=== PATIENT | female | born 1940 | race Caucasian/White ===

== ENCOUNTER 2018-03-17 10:31 | Outpatient (CLI) | payer MEDICARE ==
--- NOTE | 2018-03-17 13:26 | MRI ---
MRI LUMBAR SPINE WITHOUT CONTRAST: Date: 03/17/18 HISTORY: Disc degenerative change at L5-S1. Localized low back pain. COMPARISON: None. TECHNIQUE: Lumbar spine MRI is performed without intravenous Gadolinium administration. Multisequential, multipl heaven imaging is performed. FINDINGS: There is 1.7 mm anterolisthesis of L3 upon L4 and 3.3 mm anterolisthesis of L4 upon L5. No significan t STIR hyperintensity to suggest vertebral body edema or ligamentous injury. There is a small amount of fluid in bilateral facet joints at L3-L4 and L4-L5. Appropriate T1 marrow signal intensity of lumb ar vertebra. Vertebral body height is maintained. There is no fracture. Symmetric signal intensity of the psoas muscles. Visualized solid organs are unremarkable. Conus medullaris terminates at the mid L1 level. T12-L1: Adequate disc hydration. No significant central canal stenosis or foraminal narrowing. L1-L2: Minimal disc desiccation. No significant loss of disc space height. No significant posterior disc abn ormality. No significant central canal stenosis. Moderate bilateral foraminal narrowing. L2-L3: Adequate disc hydration. No significant posterior disc abnormality. No significant central canal sten osis. Mid right and minimal left foraminal narrowing. L3-L4: Adequate disc hydration. There is generalized disc bulge, ligamentum flavum thickening, and facet hyp ertrophy that results in minimal central canal stenosis. Right neural foramen is patent. Minimal left foraminal narrowing. L4-L5: Adequate disc hydration. Generalized disc bulge, ligamentum flavum thickening, and facet hypertrophy result in minimal central canal stenosis. Neural foramina are patent bilaterally. L5-S1: Adequate disc hydration. No significant central canal stenosis. Patent bilateral neural foramina. Questionable mucosal thickening involving the cecum and ascending colon. Better interrogation with co lonoscopy is recommended. IMPRESSION: 1. No significant central canal stenosis or foraminal narrowing. 2. Degenerative changes of the posterior elements at L3-L4 and L4-L5. Grade I anterolisthesis of L4 upon L5. 3. Mucosal irregularity involving the right hemicolon is suspected, evaluation is incomplete. Colono scopy is recommended. CODE T. POS: [facility]
== END 2018-03-17 10:32 | disposition home or self-care (01) ==
LOC: TBSIIMAG 10:31
PROVIDERS: ATTEND Neurological Surgery
DX: M51.36 Other intervertebral disc degeneration, lumbar region (principal); M47.896 Other spondylosis, lumbar region; M43.16 Spondylolisthesis, lumbar region
CPT/HCPCS: 72148

== ENCOUNTER → 2018-10-12 | Day surgery (SDC) | payer MEDICARE ==
[2018-10-08 08:20] VITALS: BMI 13.8
[~2018-10-12] MED LIST: Bacitracin Zinc 1 Packet ONE; Bacitracin Zinc Ointment 30 gm TUBE ONE; Fentanyl 100 MCG/2 ML VIAL ONE; Sodium Chloride 0.9% 0 ML ONE; Vancomycin HCl 1 GM in Premix Bag 1 BAG IVPB SCH; Vancomycin HCl 500 MG in Sodium Chloride 0.9% 100 ML IVPB SCH
[2018-10-12 11:46] LABS: #Basophils 0.1 thou/uL (0.0-0.2); #Eosinphils 0.2 thou/uL (0.0-0.7); #Lymphocytes 2.3 thou/uL (1.20-3.40); #Monocytes 0.7 thou/uL (0.11-0.59); #Neutrophils 7.9 thou/uL (1.40-6.50); %Basophils 0.7 % (0.0-1.0); %Eosinophils 1.7 % (0.0-10.0); %Lymphocytes 20.4 % (21.0-51.0); %Monocytes 6.6 % (0.0-10.0); %Neutrophils 70.7 % (42.0-75.0); Hemoglobin 10.1 g/dL (12.0-16.0); Mean Corpuscular HGB CONC 31.1 g/dL (32.0-36.0); Mean Corpuscular Hemoglobin 25.3 pg (27.0-31.0); Mean Corpuscular Volume 81.2 fL (78.0-98.0); Mean Platelet Volume 8.7 fL (7.4-10.4); Platelet Count 353 thou/uL (130-400); RBC Distribution Width 17.7 % (11.5-14.5); Red Blood Cell (RBC) Count 3.98 mill/uL (4.20-5.40); White Blood Cell (WBC) Count 11.2 thou/uL (4.8-10.8)
[2018-10-12 11:56] LABS: Bilirubin Negative (Negative); Blood, Urine Negative (Negative); Clarity CLEAR (Clear); Glucose, Urine (Dipstick) Negative (Negative); Leukocyte Negative (Negative); Nitrite Negative (Negative); Protein, Urine (Dipstick) Negative (Neg-Trace); Specific Gravity, Urine 1.019 (1.002-1.036); pH, Urine 5.5 (5.0-9.0)
--- NOTE | 2018-10-12 11:58 | RAD ---
PA AND LATERAL VIEWS CHEST: HISTORY: Preoperative evaluation. FINDINGS: Comparison is made with the exam of 11/08/2016. The heart size is normal. The aorta is tortuous. The lungs are expanded without lobar consolidation , pneumothoraces, or pleural effusions. Mild chronic changes are again seen. There is scoliosis of the spine with degenerative changes. There are postop changes in the left shoulder. IMPRESSION: No acute process. POS: [facility]
[2018-10-12 12:02] LABS: Bacteria/HPF None Seen HPF (None Seen); Hyaline Casts/LPF 0-3 HYALINE CAST LPF (0-3 Hyaline); Pathc Cast-AUWi Flag 0.27 (0-2.49); RBC/HPF 0-3 HPF (0-3); WBC/HPF 0-3 HPF (0-3)
[2018-10-12 12:12] LABS: Anion Gap 14 mmol/L (10-20); BUN (Urea Nitrogen) 29 mg/dL (9.8-20.1); Calc. Creatinine Clearance 34 mL/min (70-130); Calcium 9.7 mg/dL (7.8-10.44); Carbon Dioxide 24 mmol/L (23-31); Estimated GFR-MDRD 75; Glucose 86 mg/dL (83-110); Potassium 4.9 mmol/L (3.5-5.1)
[2018-10-12 12:28] LABS: Chloride 104 mmol/L (98-107); Sodium 137 mmol/L (136-145)
--- NOTE | 2018-10-12 15:53 | CT ---
CT Sinuses WO Con INDICATION: Pain, leukocytosis COMPARISON: None FINDINGS: Maxillary sinuses: Mucosal thickening Frontal sinus: Mucosal thickening Sphenoid sinus: Clear Ethmoid sinus: Mucosal thickening Mastoid air cells: Clear Nasal Septum: Leftward deviation, with associated spur Incidental findings: None of significance. IMPRESSION: Scattered mild mucosal thickening of the paranasal sinuses, without acute fluid level.
--- NOTE | 2018-10-13 22:58 | EKG ---
Test Reason : PREOP Blood Pressure : / mmHG Vent. Rate : 073 BPM Atrial Rate : 073 BPM P-R Int : 154 ms QRS Dur : 084 ms QT Int : 406 ms P-R-T Axes : 080 036 079 degrees QTc Int : 447 ms Normal sinus rhythm Low voltage QRS Borderline ECG When compared with ECG of 06-DEC-2004 06:27, No significant change was found Confirmed by BENITO HAWK ([id number]) on 10/13/2018 10:58:00 PM Referred By: BETHANY Confirmed By:BENITO HAWK
[2018-10-14 15:29] LABS: ANA Symphony (Qualitative) Negative (Negative); ANA Symphony (Quantitative) 0.1 Ratio (< 0.7 Negative); dsDNA IgG Antibody 0.6 IU/mL (<10 Negative)
[2018-10-14 16:23] LABS: CCP IgG Antibody 0.8 EliAU/mL (<7 Negative); EliA RAS New Method **** NEW METHOD ****
== END ==
LOC: SDC 10:58
PROVIDERS: ATTEND Orthopaedic Surgery Hand Surgery
DX: S63.211A Subluxation of metacarpophalangeal joint of left index finger, initial encounter (principal); S63.213A Subluxation of metacarpophalangeal joint of left middle finger, initial encounter; S63.215A Subluxation of metacarpophalangeal joint of left ring finger, initial encounter; S63.217A Subluxation of metacarpophalangeal joint of left little finger, initial encounter; M66.242 Spontaneous rupture of extensor tendons, left hand; M19.90 Unspecified osteoarthritis, unspecified site; J45.909 Unspecified asthma, uncomplicated; F17.210 Nicotine dependence, cigarettes, uncomplicated; Z86.12 Personal history of poliomyelitis; Z53.8 Procedure and treatment not carried out for other reasons; Z88.0 Allergy status to penicillin; Z88.5 Allergy status to narcotic agent; Z91.040 Latex allergy status; Z79.51 Long term (current) use of inhaled steroids; Z79.899 Other long term (current) drug therapy
CPT/HCPCS: 36415; 71046; 80048; 81001; 83520; 85025; 85652; 86038; 86200; 86225; 93005; 93010; J3010; J3370; J3490

== ENCOUNTER 2018-11-27 12:36 | Inpatient (IN) | payer MEDICARE ==
[2018-11-27] MEDS ORDERED: traMADol HCl 50 MG TAB ONE (13:17)
--- NOTE | 2018-11-27 13:46 | RAD ---
XR Knee Rt 2 View History: [Injury.] Comparison: None. Findings: There is a transversely oriented distal femoral fracture distal femoral metaphysis without definite intra-articular extension. There is posterior displacement distal fragment one half shaft width as well as posterior angulation. Moderate chondrocalcinosis. Impression: Mildly comminuted distal femoral fracture as described.
[2018-11-27 14:39] LABS: #Basophils 0.1 thou/uL (0.0-0.2); #Lymphocytes 1.7 thou/uL (1.20-3.40); #Neutrophils 15.8 thou/uL (1.40-6.50); %Basophils 0.5 % (0.0-1.0); %Eosinophils 0.3 % (0.0-10.0); %Lymphocytes 8.9 % (21.0-51.0); %Monocytes 5.2 % (0.0-10.0); %Neutrophils 85.1 % (42.0-75.0); Hemoglobin 9.7 g/dL (12.0-16.0); Mean Corpuscular HGB CONC 31.5 g/dL (32.0-36.0); Mean Corpuscular Hemoglobin 25.3 pg (27.0-31.0); Mean Corpuscular Volume 80.4 fL (78.0-98.0); Mean Platelet Volume 9.4 fL (7.4-10.4); Platelet Count 357 thou/uL (130-400); RBC Distribution Width 15.8 % (11.5-14.5); Red Blood Cell (RBC) Count 3.84 mill/uL (4.20-5.40); White Blood Cell (WBC) Count 18.5 thou/uL (4.8-10.8)
[2018-11-27 14:46] LABS: INR-International Normal Ratio 0.9; PTT 25.2 SEC (22.9-36.1); Prothrombin Time 12.6 SEC (12.0-14.7)
[2018-11-27 15:01] LABS: ALT (SGPT) 10 U/L (8-55); AST (SGOT) 17 U/L (5-34); Albumin 4.1 g/dL (3.4-4.8); Alkaline Phosphatase 84 U/L (40-150); Anion Gap 15 mmol/L (10-20); BUN (Urea Nitrogen) 34 mg/dL (9.8-20.1); Bilirubin, Total 0.4 mg/dL (0.2-1.2); Calc. Creatinine Clearance 0 mL/min (70-130); Calcium 9.8 mg/dL (7.8-10.44); Carbon Dioxide 22 mmol/L (23-31); Chloride 104 mmol/L (98-107); Estimated GFR-MDRD 59; Globulin 3.1 g/dL (2.4-3.5); Glucose 110 mg/dL (83-110); Potassium 4.9 mmol/L (3.5-5.1); Protein, Total 7.2 g/dL (6.0-8.3); Sodium 136 mmol/L (136-145)
[2018-11-27] MEDS ORDERED: Clindamycin/D5W 900 MG in Premix Bag 1 BAG IVPB SCH (15:30)
--- NOTE | 2018-11-27 15:41 | HP ---
CONSULTATIONS: Orthopedics, Dr. Levy. HISTORY OF PRESENT ILLNESS: The patient is a 77-year-old woman, who was reportedly at home this morning when she got up out of bed and she is unsure she heard a crack as soon as she stood up or immediately after falling, but she knows that her knee had sudden pain on her right side. She fell, landed on the right side, was able to call her son, who brought her to the emergency department, where she underwent evaluation and examination and was noted to have the right distal femur fracture, at which time, we were asked to admit the patient and obtain Orthopedic consultations. The patient denied loss of consciousness or any syncopal type events surrounding her fall. ALLERGIES: PENICILLIN. THE PATIENT STATES SHE HAS HAD A REACTION THAT TURNED HER LIPS BLACK. SHE ALSO LISTS CODEINE CAUSING SEVERE NAUSEA. CURRENT MEDICATIONS: Lisinopril 10 mg daily, Singulair, and Zyrtec. PAST MEDICAL HISTORY: Coronary artery disease, asthma. PAST SURGICAL HISTORY: Hysterectomy, left shoulder and left elbow surgeries, gastrorrhaphy for bleeding ulcer. SOCIAL HISTORY: The patient smokes approximately half pack of cigarettes per day. Denies drug or alcohol use. Currently lives independently at home. REVIEW OF SYSTEMS: A 10-point review of systems is negative as otherwise stated. PHYSICAL EXAMINATION: VITAL SIGNS: Blood pressure 112/82, heart rate 85, respirations 18, oxygen saturation 97% on room air, and temperature is 98.2. GENERAL: The patient is resting comfortably in the ER bed. She is awake, alert, and oriented x3. Gooding Coma Scale is 15. HEENT: Head is normocephalic and atraumatic. Eyes, extraocular motion intact. PERRLA bilaterally. Ears are atraumatic without discharge. Nose atraumatic without discharge. Oropharynx is clear. NECK: Nontender. Trachea is midline. There is no JVD. LUNGS: Clear to auscultation with good inspiratory and expiratory effort. HEART: Regular rate and rhythm. ABDOMEN: Soft, flat, and nontender with active bowel sounds. PELVIS: Stable. EXTREMITIES: Neurovascularly intact x4. The patient has moderate deformity to right knee, which she currently lacks it about 45-degree angle, which she states is comfortable. Again, she is neurovascularly intact distally. LABORATORY FINDINGS: White blood cell count 18.5, hemoglobin 9.7, hematocrit 30.9, and platelets 357. Sodium 136, potassium 4.9, chloride 104, CO2 22, BUN 34, creatinine 0.92, glucose 110. LFTs are unremarkable. PT 13, INR 0.9, PTT 25. Radiographs of the right knee show a mildly comminuted distal femur fracture with angulation. ASSESSMENT AND PLAN: 1. Status post mechanical fall. 2. Right distal femur fracture. 3. Acute pain secondary to above. PLAN: Plan will be to admit the patient to the surgical floor after discussion with Orthopedics. Their plan will be to take the patient to the operating room tomorrow, so we will make her n.p.o. after midnight. Postoperatively, we will continue pain control, pulmonary toilet, gastritis, mechanical VTE prophylaxis. Begin physical and occupational therapy. The patient will likely need placement postoperatively to continue her rehabilitation. The evaluation, examination, laboratory, and radiographic findings will be discussed with Dr. White after this dictation. Job ID: [id number]
--- NOTE | 2018-11-27 15:43 | RAD ---
XR Chest 1 View Portable History: [Preop femur fracture] Comparison: Radiograph 2017 Findings: Abnormal levoscoliosis of the thoracic spine. Lungs are hyperinflated. No acute airspace co nsolidation pneumothorax or effusion. Cardiac silhouette and mediastinal contours appear within normal limits. Impression: No acute intrathoracic abnormality.
--- NOTE | 2018-11-27 15:50 | CON ---
DATE OF CONSULTATION: This is Francisco Mendes PA-C dictating a report for Jay Levy MD. HISTORY OF PRESENT ILLNESS: We were asked by ER and Trauma to see patient. The patient got out of bed at 6:20 this morning, fell. Since that time, she has been having right knee pain. She came into the emergency room, found to have a distal femur fracture. The patient has some pain with movement. She seems pretty tough. She was not able to walk on the leg. She has no numbness or tingling down the right lower extremity, although she has a significant amount of bruising to the lower extremities. She states she has very sensitive skin. She has also seen Dr. Faulkner in our group for orthopedic issues and Dr. Joya in our group for hand issues. Currently, she is resting on a gurney in room D in the emergency room, in no acute distress. She did not hit her head falling. PAST MEDICAL HISTORY: Positive for ruptured appendix. She has smoking history , but other than taking some Singulair and inhalers, her lungs appeared to work okay. She denies any shortness of breath. SURGICAL HISTORY: She has had a knee scope bilaterally, hysterectomy, appendectomy, carotids. She has also had some repairs of left shoulder and elbow fractures. FAMILY HISTORY: For this visit, is noncontributory. SOCIAL HISTORY: Smoker, about a half pack a day. No alcohol or drugs though. is at bedside. She is retired. MEDICATIONS: 1. Lisinopril. 2. Vitamin D. 3. Singulair. 4. Occasional Ultram. 5. Symbicort. ALLERGIES: 1. PENICILLIN. 2. CODEINE. 3. IODINE. 4. LATEX. REVIEW OF SYSTEMS: Denies any shortness of breath or chest pain. Just right knee pain. She does have extensive bruising to the forearms, hands, knees, and lower extremities, but denies much pain as long as we do not move her. Rest of review of systems is negative. PHYSICAL EXAMINATION: GENERAL: Well-nourished, well-developed female, resting on a gurney in room D in the ER. Speech clear, fluent, oriented x3. HEENT: Normal exam. Face is symmetric. Tongue midline. NECK: Supple. Trachea midline. UPPER EXTREMITIES: Equal size, shape, symmetry. Normal bulk and tone with again, bruising seen to both arms. She does have a hand deformity on the left hand, which she is awaiting for Dr. Joya to repair. She does move both of her hands fairly well, but does have some limitations on that left hand. RESPIRATORY: Respirations 16. No distress. PELVIS: Rocked, no pain. LOWER EXTREMITIES: The patient has her right lower extremity elevated and bent , and this feels comfortable for her. It is quite swollen and has significant amount of ecchymosis and edema, as does the lower extremities have a lot of ecchymosis, various healing bruises. Skin is also quite thin and DP pulses are equal. ASSESSMENT: Right distal femur fracture. PLAN: Will let Pt eat today. Plan on doing her tomorrow morning. I have called the ER and got her posted for 8:45. We did discuss the surgery, the risks and benefits of surgery. We did go over the risks of her being a smoker and the problems that this will cause. She is amenable to go forth with surgery and understands risks and benefits as they have been explained as is her . She has been told in the past that she should not go under anesthesia. We will discuss this with Anesthesia tomorrow and may be possible, we would be able to do a spinal or an epidural of some kind, as she is not on any blood thinners. Her questions and concerns have been addressed and answered, and again, she is amenable to go forth with surgery. Job ID: [id number] MTDD
[2018-11-27] MEDS ORDERED: Dextrose 5% in Water 1,000 ML IV PRN (17:15)
[2018-11-27] MEDS ORDERED: Morphine 2 MG/ML SYRINGE SLOW IVP PRN (17:15)
[2018-11-27] MEDS ORDERED: Ondansetron PF 4 MG/2 ML Vial IVP PRN (17:15)
[2018-11-27] MEDS ORDERED: Dextrose 50% Abboject 50 ML SYRINGE SLOW IVP PRN (17:15)
[2018-11-27] MEDS ORDERED: Ketorolac Tromethamine 30 MG/ML VIAL IVP SCH (17:15)
[2018-11-27] MEDS ORDERED: Ondansetron ODT 4 MG TAB PO PRN (17:15)
[2018-11-27] MEDS ORDERED: hydrALAZINE 20 MG/ML VIAL SLOW IVP PRN (17:15)
[2018-11-27] MEDS ORDERED: Acetaminophen 1,000 MG in Premix Bag 1 BAG IVPB SCH (17:15)
[2018-11-27] MEDS: Sodium Chloride 0.9% 1,000 ML IV SCH (17:47)
[2018-11-27] MEDS: traMADol HCl 50 MG TAB PO PRN ×2 (17:48→23:45)
[2018-11-27 18:53] VITALS: BMI 15.0
[2018-11-27] MEDS: Famotidine 20 MG TAB PO SCH (21:22)
[2018-11-27] MEDS: Cyclobenzaprine 10 MG TAB PO PRN (21:22)
[2018-11-27] MEDS: Nicotine 14 MG PATCH TD SCH (21:22)
[2018-11-27] MEDS: Acetaminophen 325 MG TAB PO SCH (23:44)
[2018-11-27] MEDS ORDERED: Acetaminophen 500 MG TAB PO SCH (23:59)
[2018-11-28] MEDS ORDERED: Ibuprofen 800 MG TAB PO PRN (02:00)
[2018-11-28 03:37] LABS: Bilirubin Negative (Negative); Blood, Urine Negative (Negative); Clarity CLEAR (Clear); Glucose, Urine (Dipstick) Negative (Negative); Leukocyte Negative (Negative); Nitrite Negative (Negative); Protein, Urine (Dipstick) Negative (Neg-Trace); Specific Gravity, Urine 1.023 (1.002-1.036); Urobilinogen 0.2 mg/dL (0.2-1.0)
[2018-11-28 03:38] LABS: Urine Culture Reflex No No
[2018-11-28 03:39] LABS: Bacteria/HPF None Seen HPF (None Seen); Hyaline Casts/LPF 7-10 HYALINE CAST LPF (0-3 Hyaline); Pathc Cast-AUWi Flag 1.63 (0-2.49); RBC/HPF 0-3 HPF (0-3); Squamous Epithelial 0-3 HPF (0-3); WBC/HPF 0-3 HPF (0-3)
[2018-11-28 05:38] LABS: #Basophils 0.1 thou/uL (0.0-0.2); #Eosinphils 0.3 thou/uL (0.0-0.7); #Lymphocytes 2.9 thou/uL (1.20-3.40); #Monocytes 1.3 thou/uL (0.11-0.59); #Neutrophils 10.8 thou/uL (1.40-6.50); %Basophils 0.4 % (0.0-1.0); %Eosinophils 1.7 % (0.0-10.0); %Monocytes 8.7 % (0.0-10.0); %Neutrophils 70.3 % (42.0-75.0); Hemoglobin 8.2 g/dL (12.0-16.0); Mean Corpuscular HGB CONC 31.3 g/dL (32.0-36.0); Mean Corpuscular Hemoglobin 26.1 pg (27.0-31.0); Mean Corpuscular Volume 83.3 fL (78.0-98.0); Mean Platelet Volume 9.6 fL (7.4-10.4); Platelet Count 274 thou/uL (130-400); RBC Distribution Width 15.8 % (11.5-14.5); Red Blood Cell (RBC) Count 3.15 mill/uL (4.20-5.40); White Blood Cell (WBC) Count 15.4 thou/uL (4.8-10.8)
[2018-11-28 05:46] LABS: Phosphorus 3.1 mg/dL (2.3-4.7)
[2018-11-28 05:51] LABS: Anion Gap 10 mmol/L (10-20); BUN (Urea Nitrogen) 31 mg/dL (9.8-20.1); Calc. Creatinine Clearance 35 mL/min (70-130); Calcium 8.5 mg/dL (7.8-10.44); Carbon Dioxide 20 mmol/L (23-31); Chloride 110 mmol/L (98-107); Estimated GFR-MDRD 73; Glucose 123 mg/dL (83-110); Magnesium 1.6 mg/dL (1.6-2.6); Potassium 4.4 mmol/L (3.5-5.1); Sodium 136 mmol/L (136-145)
[2018-11-28] MEDS: traMADol HCl 50 MG TAB PO PRN ×2 (06:10→14:52)
[2018-11-28] MEDS: Sodium Chloride 0.9% 1,000 ML IV SCH ×2 (06:10→19:07)
[2018-11-28] MEDS: Acetaminophen 325 MG TAB PO SCH ×4 (06:10→23:27)
[2018-11-28] MEDS: Famotidine 20 MG TAB PO SCH ×2 (08:30→21:57)
[2018-11-28] MEDS ORDERED: Clindamycin/D5W 900 mg/50 ml Premix Bag ONE (08:43)
[2018-11-28] MEDS ORDERED: Lidocaine 2% Jelly 5 ML TUBE ONE (09:42)
[2018-11-28] MEDS ORDERED: Fentanyl 100 MCG/2 ML VIAL ONE (09:42)
[2018-11-28] MEDS ORDERED: Phenylephrine HCL 10 MG/ML VIAL ONE (10:24)
[2018-11-28] MEDS ORDERED: PROPOFOL 200 MG/20 ML VIAL ONE (10:24)
[2018-11-28] MEDS ORDERED: Morphine 2 MG/ML SYRINGE ONE (10:30)
[2018-11-28] MEDS ORDERED: Ondansetron HCl/PF 4 MG/2 ML Vial IVP PRN (11:52)
[2018-11-28] MEDS ORDERED: Promethazine HCl 25 MG/ML VIAL IM PRN (11:52)
[2018-11-28] MEDS ORDERED: Promethazine HCl 25 MG/ML VIAL SLOW IVP PRN (11:52)
[2018-11-28] MEDS ORDERED: Magnesium 2 GM/50 ML 2 GM in Premix Bag 1 BAG IVPB SCH (13:15)
[2018-11-28] MEDS: Lisinopril 5 MG TAB PO SCH (13:48)
[2018-11-28] MEDS ORDERED: Sodium Chloride 0.9% 500 ML IV SCH ×2 (15:15→16:15)
[2018-11-28] MEDS ORDERED: Clindamycin/D5W 900 MG in Premix Bag 1 BAG IVPB SCH (17:00)
[2018-11-28] MEDS: Cyclobenzaprine 10 MG TAB PO PRN (17:00)
[2018-11-28] MEDS: Mometasone/Formoterol 120 PUFF INHALER INH SCH (20:44)
[2018-11-28] MEDS: Nicotine 14 MG PATCH TD SCH (21:57)
[2018-11-28] MEDS: Simvastatin 20 MG TAB PO SCH (21:57)
[2018-11-28] MEDS: Aspirin 81 mg Enteric Coated Tablet PO SCH (21:57)
[2018-11-28] MEDS: Clindamycin/D5W 900 MG in Premix Bag 1 BAG IVPB SCH (22:02)
[2018-11-29] MEDS: Acetaminophen 325 MG TAB PO SCH ×3 (06:50→18:03)
[2018-11-29] MEDS: Sodium Chloride 0.9% 1,000 ML IV SCH (06:51)
[2018-11-29] MEDS: Mometasone/Formoterol 120 PUFF INHALER INH SCH ×2 (08:34→19:16)
[2018-11-29] MEDS: Aspirin 81 mg Enteric Coated Tablet PO SCH ×2 (09:28→21:10)
[2018-11-29 10:26] LABS: Band 8 % (5-11); Hemoglobin 7.3 g/dL (12.0-16.0); Hypochromia SLIGHT = 6-15 cells (100X) (0-5/hpf); Lymphocytes 13 % (21-51); MDiff Complete? YES; Mean Corpuscular HGB CONC 30.7 g/dL (32.0-36.0); Mean Corpuscular Hemoglobin 25.1 pg (27.0-31.0); Mean Corpuscular Volume 81.7 fL (78.0-98.0); Mean Platelet Volume 9.6 fL (7.4-10.4); Monocytes 2 % (0-10); Neutrophil 77 % (42-75); Platelet Count 288 thou/uL (130-400); RBC Distribution Width 15.9 % (11.5-14.5); Red Blood Cell (RBC) Count 2.91 mill/uL (4.20-5.40); Target Cells SLIGHT = 2-5 cells (100X) (0-1/hpf); White Blood Cell (WBC) Count 20.2 thou/uL (4.8-10.8)
[2018-11-29] MEDS: Clindamycin/D5W 900 MG in Premix Bag 1 BAG IVPB SCH (12:50)
[2018-11-29] MEDS: traMADol HCl 50 MG TAB PO PRN (12:58)
[2018-11-29] MEDS ORDERED: Magnesium Sulfate 3 GM in Sodium Chloride 0.9% 250 ML 250 ML IVPB SCH (15:00)
--- NOTE | 2018-11-29 15:12 | PRG ---
DATE OF SERVICE: 11/29/2018 SUBJECTIVE: The patient is hospital day 2, postop day 1 status post ground level fall, which she sustained a right distal femur fracture. She has undergone operation of open reduction and internal fixation of same. She tolerated the procedure well. She underwent spinal for that, so yesterday she was unable to work with Physical Therapy, so she is waiting for that now. She had no issues overnight. Pain is controlled. She is tolerating a diet. OBJECTIVE: VITAL SIGNS: Temperature is 97.7, heart rate 80, blood pressure 130/74 respirations 15, oxygen saturation is 100% on room air. GENERAL: The patient is resting comfortably in bed. She was asleep, when I went there, was easily awakened with verbal stimuli. HEENT: Unremarkable. LUNGS: Clear to auscultation with good inspiratory and expiratory efforts. HEART: Regular rate and rhythm. ABDOMEN: Soft, flat, nontender with active bowel sounds. EXTREMITIES: Neurovascularly intact x4. Postop dressing is clean, dry, and intact. LABORATORY FINDINGS: White blood cell count 20.2, hemoglobin 7.3, hematocrit 23.8, platelets 288. Sodium 136, potassium 4.4, chloride 110, CO2 of 20, BUN 31, creatinine 0.77, glucose 123, phosphorus 3.1, magnesium 1.6. IMAGING STUDIES: There are no radiographs reviewed this morning. ASSESSMENT: 1. Status post ground level fall. 2. Status post open reduction and internal fixation of a right distal femur fracture. 3. Hypomagnesemia. PLAN: Plan will be to continue supportive care, physical and occupational therapy, pain control, pulmonary toilet, mechanical and chemical VTE prophylaxis, and replace her magnesium this morning. We will repeat her labs in the morning. We will also discuss placement tomorrow. Job ID: [id number]
[2018-11-29] MEDS: HYDROcodone/Acetaminophen 5/325 mg Tablet PO PRN (18:00)
[2018-11-29] MEDS: Nicotine 14 MG PATCH TD SCH (20:59)
[2018-11-29] MEDS: Simvastatin 20 MG TAB PO SCH (21:00)
[2018-11-29] MEDS: Senokot S 8.6-50 MG TAB PO SCH (21:00)
[2018-11-29] MEDS: Famotidine 20 MG TAB PO SCH (21:00)
[2018-11-30] MEDS: Acetaminophen 325 MG TAB PO SCH ×4 (00:41→17:44)
[2018-11-30] MEDS: HYDROcodone/Acetaminophen 5/325 mg Tablet PO PRN ×2 (01:11→05:38)
[2018-11-30] MEDS: traMADol HCl 50 MG TAB PO PRN ×2 (03:27→17:45)
[2018-11-30 05:19] LABS: #Basophils 0.1 thou/uL (0.0-0.2); #Eosinphils 0.3 thou/uL (0.0-0.7); #Monocytes 1.4 thou/uL (0.11-0.59); #Neutrophils 9.9 thou/uL (1.40-6.50); %Basophils 0.4 % (0.0-1.0); %Eosinophils 2.1 % (0.0-10.0); %Lymphocytes 14.6 % (21.0-51.0); %Monocytes 9.9 % (0.0-10.0); %Neutrophils 72.9 % (42.0-75.0); Hemoglobin 6.3 g/dL (12.0-16.0); Mean Corpuscular HGB CONC 30.9 g/dL (32.0-36.0); Mean Corpuscular Hemoglobin 25.2 pg (27.0-31.0); Mean Corpuscular Volume 81.4 fL (78.0-98.0); Mean Platelet Volume 10.2 fL (7.4-10.4); Platelet Count 275 thou/uL (130-400); RBC Distribution Width 15.8 % (11.5-14.5); Red Blood Cell (RBC) Count 2.52 mill/uL (4.20-5.40); White Blood Cell (WBC) Count 13.6 thou/uL (4.8-10.8)
[2018-11-30 05:49] LABS: Anion Gap 9 mmol/L (10-20); BUN (Urea Nitrogen) 29 mg/dL (9.8-20.1); Calc. Creatinine Clearance 40 mL/min (70-130); Calcium 8.6 mg/dL (7.8-10.44); Carbon Dioxide 22 mmol/L (23-31); Chloride 107 mmol/L (98-107); Estimated GFR-MDRD 82; Glucose 118 mg/dL (83-110); Magnesium 2.7 mg/dL (1.6-2.6); Phosphorus 3.2 mg/dL (2.3-4.7); Potassium 4.8 mmol/L (3.5-5.1); Sodium 133 mmol/L (136-145)
[2018-11-30] MEDS: Aspirin 81 mg Enteric Coated Tablet PO SCH ×2 (08:17→21:04)
[2018-11-30] MEDS: Senokot S 8.6-50 MG TAB PO SCH ×2 (08:17→21:04)
[2018-11-30] MEDS: Polyethylene Glycol 3350 17 GM Packet PO SCH (08:17)
[2018-11-30] MEDS: Mometasone/Formoterol 120 PUFF INHALER INH SCH ×2 (09:13→20:25)
--- NOTE | 2018-11-30 09:24 | OP ---
DATE OF PROCEDURE: 11/28/2018 PREOPERATIVE DIAGNOSIS: Right femur fracture. POSTOPERATIVE DIAGNOSIS: Right femur fracture. ANESTHESIA: General. BLOOD LOSS: 100. SPECIMENS: None. DRAINS: None. COMPLICATIONS: None. IMPLANTS USED: Synthes RAFN nail 13 x 380 with a spiral blade distally and a distal locking screw and a proximal locking screw. APPLICATION CHEMIST: Francisco eMndes PA-C DESCRIPTION OF PROCEDURE: The patient was taken to the operating room, where general anesthesia was induced. She received Ancef preoperatively. The right leg was prepped and draped in the sterile fashion. I obtained a reduction with manual traction and elevation with short triangle device. I then made a small incision over the patella. This was carried down to the joint, placed guidepin across the joint to identify the correct entry portal and then drilled with the opening reamer, measured the femur length with a ball-tipped Guidewire, estimated the width, opened the distal femur and then inserted the femoral nail without any needs for intramedullary fixation. The bone quality was of such poor condition that this was not necessary. The distal locking screw and distal blade were placed. I used an in place. A proximal locking screw was placed freehand. Irrigation performed. I then closed the proximal wound and the lateral wound with zoran. However, the skin was of such poor quality of the medial aspect of the knee. Zoran would not hold. I used Nylon sutures and these also tore through the skin which had been damaged from direct contusion. Sterile dressing was applied, and the patient was placed in a knee immobilizer. Job ID: [id number]
[2018-11-30] MEDS: Lisinopril 5 MG TAB PO SCH (12:45)
--- NOTE | 2018-11-30 16:03 | PRG ---
DATE OF SERVICE: 11/30/2018 SUBJECTIVE: A 77-year-old female, postop day 2, status post fall with right distal femur fracture, status post open reduction and internal fixation. Currently, denies pain. The patient has poor appetite. Reports she does not like Ensure, eats Ensure supplements either. She is having her bring her a milkshake this afternoon. She is waiting for PT and OT to come work with her today. OBJECTIVE: VITAL SIGNS: Blood pressure 145/79, temp 98.4, pulse 80, respirations 14, SpO2 97% on room air. GENERAL: The patient is alert and oriented, resting in bed. NECK: Supple. Trachea midline. LUNGS: Clear to auscultation bilaterally. No respiratory distress. HEART: Regular rate and rhythm. Systolic murmur that radiates to the carotids. Radial pulses intact bilaterally. ABDOMEN: Soft, nontender. Bowel sounds present. EXTREMITIES: Right leg in brace. LABORATORY FINDINGS: White blood cell count 13.6, hemoglobin 6.3 ASSESSMENT: 1. Status post ground level fall. 2. Status post open reduction and internal fixation of right distal femur fracture. 3. Hypomagnesemia, resolved. PLAN: Continue supportive care, physical and occupational therapy, pain control, incentive spirometry, VTE prophylaxis. Her magnesium is now corrected. Her hemoglobin dropped from 7.3 to 6.3. She is being transfused 1 unit of packed red blood cells. Encouraged the patient to maintain nutrition. She did not eat her lunch. This patient was seen and evaluated by Dr. Mccain on morning rounds. Discussed plan with the patient, who is in agreement. Job ID: [id number]
[2018-11-30] MEDS: Nicotine 14 MG PATCH TD SCH (21:04)
[2018-11-30] MEDS: Famotidine 20 MG TAB PO SCH (21:04)
[2018-11-30] MEDS: Simvastatin 20 MG TAB PO SCH (21:04)
[2018-12-01] MEDS: Acetaminophen 325 MG TAB PO SCH ×4 (00:24→17:28)
[2018-12-01] MEDS: HYDROcodone/Acetaminophen 5/325 mg Tablet PO PRN (05:26)
[2018-12-01 05:35] LABS: #Eosinphils 0.4 thou/uL (0.0-0.7); #Lymphocytes 1.9 thou/uL (1.20-3.40); #Monocytes 1.2 thou/uL (0.11-0.59); #Neutrophils 8.7 thou/uL (1.40-6.50); %Basophils 0.3 % (0.0-1.0); %Eosinophils 3.3 % (0.0-10.0); %Lymphocytes 15.2 % (21.0-51.0); %Monocytes 10.1 % (0.0-10.0); %Neutrophils 71.1 % (42.0-75.0); Hemoglobin 8.5 g/dL (12.0-16.0); Mean Corpuscular Volume 81.7 fL (78.0-98.0); Mean Platelet Volume 9.7 fL (7.4-10.4); Platelet Count 274 thou/uL (130-400); RBC Distribution Width 15.2 % (11.5-14.5); Red Blood Cell (RBC) Count 3.15 mill/uL (4.20-5.40); White Blood Cell (WBC) Count 12.2 thou/uL (4.8-10.8)
[2018-12-01] MEDS: Mometasone/Formoterol 120 PUFF INHALER INH SCH ×2 (09:21→18:54)
[2018-12-01] MEDS: Polyethylene Glycol 3350 17 GM Packet PO SCH (09:43)
[2018-12-01] MEDS: Senokot S 8.6-50 MG TAB PO SCH ×2 (09:43→21:13)
[2018-12-01] MEDS: Ascorbic Acid 500 mg Chewable Tablet PO SCH ×2 (09:43→21:14)
[2018-12-01] MEDS: Aspirin 81 mg Enteric Coated Tablet PO SCH ×2 (09:43→21:18)
[2018-12-01] MEDS: Cyclobenzaprine 10 MG TAB PO PRN (09:46)
--- NOTE | 2018-12-01 10:36 | PRG ---
DATE OF SERVICE: 12/01/2018 SUBJECTIVE: A 77-year-old female postop day three. The patient had a fall with right distal femur fracture status post open reduction and internal fixation. Currently denies pain. The patient continues to have poor appetite. She ate about 50% of her breakfast this morning. She is working with PT and OT. The patient reports no bowel movement since 11/26/2018. This is a little longer than she typically has in between bowel movements. OBJECTIVE: VITAL SIGNS: Blood pressure 124/77, temperature 98.4, pulse 79, respirations 16, and SpO2 of 96% on room air. GENERAL: Alert and oriented. Sitting up on the edge of the bed, working with physical therapy. NECK: Supple. Trachea midline. LUNGS: Clear to auscultation bilaterally. No acute distress. HEART: Regular rate and rhythm. 3/6 systolic murmur radiates to carotids. Radial pulses intact bilaterally. ABDOMEN: Soft and nontender. Bowel sounds present. EXTREMITIES: Right leg in brace. LABORATORY FINDINGS: White blood cell count 12.2 and hemoglobin 8.5. ASSESSMENT: 1. Status post ground level fall. 2. Status post open reduction and internal fixation of right distal femur fracture. 3. Hypomagnesemia, resolved. PLAN: Continue supportive care, physical and occupational therapy, pain control, incentive spirometry, and VTE prophylaxis. Her magnesium is now corrected. The patient received a transfusion yesterday with hemoglobin of 6.3, this has increased to 8.5. She is asymptomatic. Continued to encourage the patient to maintain nutrition. This patient was seen and evaluated by Dr. Mccain on morning rounds. Discussed plan with the patient, who is in agreement. Job ID: [id number]
[2018-12-01] MEDS: traMADol HCl 50 MG TAB PO PRN (11:47)
[2018-12-01] MEDS: Ferrous Sulfate 325 MG TAB PO SCH (17:28)
[2018-12-01] MEDS: Nicotine 14 MG PATCH TD SCH (21:13)
[2018-12-01] MEDS: Simvastatin 20 MG TAB PO SCH (21:14)
[2018-12-02] MEDS: Acetaminophen 325 MG TAB PO SCH ×3 (00:03→12:08)
[2018-12-02] MEDS ORDERED: Milk Of Magnesia 30 ML UDCUP PO SCH (07:00)
[2018-12-02] MEDS: Mometasone/Formoterol 120 PUFF INHALER INH SCH (07:47)
[2018-12-02] MEDS ORDERED: Montelukast Sodium 10 mg Tablet PO SCH (09:00)
[2018-12-02] MEDS: Ferrous Sulfate 325 MG TAB PO SCH (09:18)
[2018-12-02] MEDS: Ascorbic Acid 500 mg Chewable Tablet PO SCH (09:19)
[2018-12-02] MEDS: Aspirin 81 mg Enteric Coated Tablet PO SCH (09:19)
[2018-12-02] MEDS: Senokot S 8.6-50 MG TAB PO SCH (09:19)
[2018-12-02] MEDS: Polyethylene Glycol 3350 17 GM Packet PO SCH (09:19)
[2018-12-02] MEDS: HYDROcodone/Acetaminophen 5/325 mg Tablet PO PRN (09:45)
--- NOTE | 2018-12-02 09:48 | PRG ---
DATE OF SERVICE: 12/02/2018 SUBJECTIVE: Ms. Catalan has no complaints. She has not had a bowel movement in the last several days. However, she said this is not abnormal for her. She is working with physical therapy. She has no complaints of pain. OBJECTIVE: VITAL SIGNS: She is afebrile. Vital signs are stable. CHEST: Clear. HEART: Regular rate. ABDOMEN: Soft, nontender, and nondistended. EXTREMITIES: There is no lower extremity edema or ischemia. ASSESSMENT: Distal femur fracture, awaiting rehab, urinary retention, and constipation. PLAN: She already got milk of magnesia this morning. Awaiting on disposition to assisted or rehab. She is having some retention, will continue in and out cath p.r.n. We will order CBC in the morning. She did get a unit of blood a few days ago. Job ID: [id number]
[2018-12-02] MEDS ORDERED: PROVENTIL INHALER 6.7 G (200 INHALATIONS) INH SCH (10:30)
[2018-12-02] MEDS ORDERED: Calcium Carbonate 500 MG ChewTAB PO PRN (11:00)
[2018-12-02 11:22] VITALS: BP 152/83; TEMP 98.6
[2018-12-02] MEDS ORDERED: Non-Formulary Item 1 EACH (Naproxen Sodium [Aleve] 2 TAB) PO PRN (12:57)
[2018-12-02] MEDS ORDERED: traMADol HCl 50 MG TAB PO PRN (12:57)
[2018-12-02 13:23] LABS: #Eosinphils 0.2 thou/uL (0.0-0.7); #Monocytes 1.4 thou/uL (0.11-0.59); %Basophils 0.1 % (0.0-1.0); %Eosinophils 1.3 % (0.0-10.0); %Lymphocytes 12.1 % (21.0-51.0); %Monocytes 8.2 % (0.0-10.0); %Neutrophils 78.3 % (42.0-75.0); Hemoglobin 9.5 g/dL (12.0-16.0); Mean Corpuscular HGB CONC 33.2 g/dL (32.0-36.0); Mean Corpuscular Volume 81.4 fL (78.0-98.0); Mean Platelet Volume 9.1 fL (7.4-10.4); Platelet Count 336 thou/uL (130-400); RBC Distribution Width 15.9 % (11.5-14.5); Red Blood Cell (RBC) Count 3.52 mill/uL (4.20-5.40); White Blood Cell (WBC) Count 16.6 thou/uL (4.8-10.8)
[2018-12-02] MEDS: Lisinopril 5 MG TAB PO SCH (13:39)
--- NOTE | 2018-12-03 02:56 | DIS ---
DATE OF ADMISSION: 11/27/2018 DATE OF DISCHARGE: 12/02/2018 DISCHARGE PHYSICIAN: Theo Mccain MD CONSULTS: Orthopedic Surgery, Dr. Levy. PROCEDURES: 1. On 11/27/2018, right knee x-ray shows a mildly comminuted distal femur fracture with angulation. 2. Chest x-ray on 11/27/2018, no acute intrathoracic abnormality. 3. On 11/28/2018, right femur fracture repair with IM nail by Dr. Levy. DIAGNOSIS: Right distal femur fracture status post mechanical fall. SECONDARY DIAGNOSIS: Acute pain secondary to fall. DISCHARGE MEDICATIONS: 1. Tramadol 50 mg q.4 hours p.r.n. pain. 2. Acetaminophen 650 p.o. q.6 hours. 3. Vitamin C 500 mg p.o. b.i.d. 4. Aspirin 81 mg p.o. b.i.d. for 30 days. 5. Symbicort 160 mg/4.5 mg two puffs b.i.d. 6. Dulera 200 mcg/5 mcg inhaler two puffs b.i.d. 7. Calcium carbonate as needed. 8. Ferrous sulfate 325 mg p.o. b.i.d. 9. DuoNeb. 10. Zestril 5 mg p.o. every 2 days. 11. Singulair 10 mg p.o. daily. 12. Naproxen 220 mg 2 tabs p.o. p.r.n. 13. Nicoderm 14 mg patch q.24 hours. 14. Zofran ODT 4 mg p.o. q.6 hours as needed. 15. MiraLAX as needed. 16. Senokot S as needed. 17. Zocor 10 mg p.o. at bedtime. HISTORY OF PRESENT ILLNESS AND HOSPITAL COURSE: This is a 77-year-old lady who was reportedly at home when she got up out of bed and was unsure if she heard a crack as soon as she stood up or immediately after falling. The patient reports sudden pain to the right knee. The patient fell and landed on the right side. She was found to have a right distal femur fracture in which Trauma Services was asked to admit the patient and Orthopedics was consulted. The patient denied any loss of consciousness or any syncopal type event before her fall. The patient had decreased appetite during her hospital stay in which she was placed on Ensure and MightyShakes. Otherwise, the patient's pain was well controlled. The patient did have issues with urinary retention, where she had to be bladder scanned and in and out cathed on multiple occasions. The patient was evaluated by Dr. Mccain on the day of discharge. The patient's vital signs and labs were stable. The patient's exam was unremarkable including cardiopulmonary and GI exam. The patient was deemed stable for discharge to swing bed for continued physical and occupational therapies. DISPOSITION: Stable. DISCHARGE INSTRUCTIONS: 1. Location: Swing bed unit. 2. Diet: Regular diet with supplemental MightyShakes and Ensure. 3. Activity: Orthopedic limitations, toe touch only, right lower extremity, other extremities weight bear as tolerated. 4. Followup: a. Follow up with Dr. Levy as directed. b. No need to follow up with Trauma Clinic, Dr. Rolon. Please call for any questions. This is just a summary of the hospital course. Job ID: [id number] MTDD
== END 2018-12-02 15:19 | DRG 482 ==
LOC: ERS 12:36 → SURG A 14:30
PROVIDERS: ADMIT Specialist; ATTEND Specialist
PROC: 0QSB04Z Reposition Right Lower Femur with Internal Fixation Device, Open Approach (ICD-10-PCS; principal; 2018-11-28)
PROC: 30233N1 Transfusion of Nonautologous Red Blood Cells into Peripheral Vein, Percutaneous Approach (ICD-10-PCS; 2018-11-30)
DX: S72.401A Unspecified fracture of lower end of right femur, initial encounter for closed fracture (principal); I25.10 Atherosclerotic heart disease of native coronary artery without angina pectoris; J45.909 Unspecified asthma, uncomplicated; F17.210 Nicotine dependence, cigarettes, uncomplicated; W18.30XA Fall on same level, unspecified, initial encounter; E83.42 Hypomagnesemia; Z60.2 Problems related to living alone; Z90.710 Acquired absence of both cervix and uterus; Z79.899 Other long term (current) drug therapy; Z88.0 Allergy status to penicillin; Z88.5 Allergy status to narcotic agent; Z91.041 Radiographic dye allergy status; Z91.040 Latex allergy status; R33.9 Retention of urine, unspecified; K59.00 Constipation, unspecified
CPT/HCPCS: 36415; 36430; 71045; 76000; 80048; 80053; 81001; 83735; 84100; 85025; 85610; 85730; 86850; 86900; 86901; 93005; 94664; 94760; C1713; C1769; C1776; J0131; J2270; J2370; J2704; J3010; J3475; J3490; J7050; P9016

== ENCOUNTER 2019-05-04 06:53 | Outpatient (CLI) | payer MEDICARE ==
[2019-05-04 16:09] LABS: #Basophils 0.1 thou/uL (0.0-0.2); #Eosinphils 0.3 thou/uL (0.0-0.7); #Lymphocytes 2.6 thou/uL (1.20-3.40); #Neutrophils 7.9 thou/uL (1.40-6.50); %Basophils 0.6 % (0.0-1.0); %Eosinophils 2.1 % (0.0-10.0); %Lymphocytes 22.1 % (21.0-51.0); %Monocytes 8.5 % (0.0-10.0); %Neutrophils 66.7 % (42.0-75.0); Bilirubin Small (Negative); Blood, Urine Negative (Negative); Glucose, Urine (Dipstick) Negative (Negative); Hemoglobin 11.8 g/dL (12.0-16.0); Leukocyte Negative (Negative); Mean Corpuscular HGB CONC 31.9 g/dL (32.0-36.0); Mean Corpuscular Hemoglobin 28.8 pg (27.0-31.0); Mean Corpuscular Volume 90.5 fL (78.0-98.0); Mean Platelet Volume 9.9 fL (7.4-10.4); Nitrite Negative (Negative); Platelet Count 310 thou/uL (130-400); Protein, Urine (Dipstick) Negative (Neg-Trace); RBC Distribution Width 14.5 % (11.5-14.5); Red Blood Cell (RBC) Count 4.08 mill/uL (4.20-5.40); White Blood Cell (WBC) Count 11.9 thou/uL (4.8-10.8)
[2019-05-04 16:15] LABS: Clarity Clear (Clear)
[2019-05-04 16:23] LABS: Bacteria/HPF 1+ HPF (None Seen); RBC/HPF None Seen HPF (0-3); Squamous Epithelial 0-3 HPF (0-3); WBC/HPF None Seen HPF (0-3)
[2019-05-04 16:28] LABS: Anion Gap 16 mmol/L (10-20); BUN (Urea Nitrogen) 27 mg/dL (9.8-20.1); Calc. Creatinine Clearance 0 mL/min (70-130); Calcium 9.6 mg/dL (7.8-10.44); Carbon Dioxide 21 mmol/L (23-31); Chloride 105 mmol/L (98-107); Estimated GFR-MDRD 77; Glucose 90 mg/dL (83-110); Potassium 5.2 mmol/L (3.5-5.1); Sodium 137 mmol/L (136-145)
== END 2019-05-04 06:54 | disposition home or self-care (01) ==
LOC: LABBT 06:53
PROVIDERS: ATTEND Orthopaedic Surgery Hand Surgery
DX: Z01.818 Encounter for other preprocedural examination (principal); S63.205A Unspecified subluxation of left ring finger, initial encounter; S63.201A Unspecified subluxation of left index finger, initial encounter; S63.203A Unspecified subluxation of left middle finger, initial encounter; M19.042 Primary osteoarthritis, left hand
CPT/HCPCS: 80048; 81001; 85025; 93005; 93010

== ENCOUNTER 2019-05-10 13:21 | Observation (INO) | payer MEDICARE ==
[2019-05-10] MEDS ORDERED: Midazolam HCl 2 mg/2 ml Vial ONE (14:38)
[2019-05-10] MEDS ORDERED: Fentanyl 100 MCG/2 ML VIAL ONE (14:38)
--- NOTE | 2019-05-10 16:33 | RAD ---
2 view chest: [05/10/2019] Comparion:11/27/2018 and 10/12/2018 HISTORY: Preoperative patient FINDINGS: There is a subtle irregular nodular density overlying the left upper lobe. This may represe nt an underlying pulmonary parenchymal nodule measuring in the 1.1 cm range. Recommend further assessment via CT. There is increased linear interstitial density and pulmonary hyperinflation. There is also exaggerate d anterior thoracic kyphosis. No lobar consolidation or alveolar edema. IMPRESSION: Subtle nodular density in the left upper lobe region. Recommend further assessment via CT examination of the chest. CODE T Message sent to Dr. Joya via [employer] at the time of dictation 05/10/2019
[2019-05-10] MEDS ORDERED: Lisinopril 10 MG TAB ONE (17:13)
[2019-05-10] MEDS ORDERED: hydrALAZINE 20 MG/ML VIAL SLOW IVP PRN (19:12)
[2019-05-10] MEDS ORDERED: Acetaminophen 650 MG Suppository PR PRN (19:13)
[2019-05-10] MEDS ORDERED: Acetaminophen 325 MG TAB PO PRN (19:13)
[2019-05-10] MEDS ORDERED: Sodium Chloride 0.9% 1,000 ML IV SCH (19:30)
--- NOTE | 2019-05-10 19:49 | CON ---
DATE OF CONSULTATION: 05/10/2019 PRIMARY CARE PROVIDER: Dr. Marcellus Padilla. CHIEF COMPLAINT: Management of medical comorbidities. HISTORY OF PRESENT ILLNESS: Ms. Catalan is a pleasant 78-year-old lady, who was seen at [facility] on May 10, 2019. She came here earlier today for elective day surgery on her left hand. However, she was found to have elevated blood pressure and surgery was postponed. She has been referred to Hospitalist Service for management of medical comorbidities. The patient denies any chest pain or shortness of breath. She denies any nausea or vomiting. She has no complaints. REVIEW OF SYSTEMS: All systems were reviewed and found to be negative. PAST MEDICAL HISTORY: COPD, asthma, hypertension, kyphosis, coronary artery disease, and osteoarthritis. SURGICAL HISTORY: Appendectomy, hysterectomy, elbow surgery with complete replacement, femoral repair, cataract surgery, and surgery for right femoral fracture. SOCIAL HISTORY: The patient smokes half a pack of cigarettes a day. She denies any alcohol use or recreational drug use. FAMILY HISTORY: No family history of premature coronary artery disease. ALLERGIES: CODEINE, IODINE, LATEX, AND PENICILLIN. CURRENT MEDICATIONS: These need to be clarified, but in the past, the patient was on; 1. Ventolin. 2. Cetirizine. 3. Vitamin D3. 4. Combivent. 5. Cranberry. 6. Flexeril. 7. Lisinopril. 8. Montelukast. 9. Zocor. 10. Symbicort. 11. Tramadol. CODE STATUS: I discussed her code status. She is DNAR. PHYSICAL EXAMINATION: GENERAL: On examination, Ms. Catalan is awake and alert, not in acute distress. She appears malnourished, with a BMI of 13.9. VITAL SIGNS: Last known blood pressure was 148/92. Pulse is 72. EYES: No scleral icterus, no conjunctival pallor. ENT: Moist mucosal membranes. No oropharyngeal erythema or exudates. NECK: Supple, nontender, trachea is midline. RESPIRATORY: Accessory muscles of breathing are not active. Chest wall movements are symmetric bilaterally. Lungs are clear to auscultation without wheeze, rhonchi, or crepitations. CARDIOVASCULAR: S1 and S2 are heard, regular. Peripheral pulses palpable. ABDOMEN: Soft, nontender, bowel sounds heard. NEUROLOGIC: Cranial nerves 2 through 12 are intact. MUSCULOSKELETAL: The patient has arthritic deformities of the left hand. SKIN: No rashes or subcutaneous nodules. LYMPHATIC: No cervical lymphadenopathy. PSYCHIATRIC: Normal mood, normal affect, the patient is oriented to person, place, and time. LABORATORY DATA: Ms. Catalan's labs and investigations were reviewed. Troponin-I was less than 0.10. ASSESSMENT AND PLAN: Ms. Catalan is a pleasant 78-year-old lady, who was seen at [facility] on May 10, 2019. Her problem list includes: 1. Hypertensive urgency: The patient reportedly had hypertensive urgency prior to surgery. She will be admitted to the hospital for further management. We will start her on p.r.n. IV hydralazine. 2. Asthma: This appears to be stable. 3. Coronary artery disease: This appears to be stable as well. The patient's home medications will be resumed once clarified. She will be kept n.p.o. after midnight for potential surgery tomorrow. Many thanks for allowing me to participate in your patient's care. Please feel free to contact me with any questions or concerns. LEVEL OF RISK: Moderate. LEVEL OF COMPLEXITY: Moderate. Job ID: [id number]
[2019-05-10 21:40] VITALS: BMI 15.0
[2019-05-11 04:10] LABS: #Basophils 0.1 thou/uL (0.0-0.2); #Eosinphils 0.2 thou/uL (0.0-0.7); #Lymphocytes 1.7 thou/uL (1.20-3.40); #Monocytes 0.8 thou/uL (0.11-0.59); #Neutrophils 5.8 thou/uL (1.40-6.50); %Basophils 0.6 % (0.0-1.0); %Eosinophils 2.9 % (0.0-10.0); %Lymphocytes 19.9 % (21.0-51.0); %Monocytes 8.8 % (0.0-10.0); %Neutrophils 67.8 % (42.0-75.0); Mean Corpuscular HGB CONC 32.8 g/dL (32.0-36.0); Mean Corpuscular Hemoglobin 29.3 pg (27.0-31.0); Mean Corpuscular Volume 89.5 fL (78.0-98.0); Mean Platelet Volume 9.2 fL (7.4-10.4); Platelet Count 256 thou/uL (130-400); RBC Distribution Width 14.3 % (11.5-14.5); Red Blood Cell (RBC) Count 3.75 mill/uL (4.20-5.40); White Blood Cell (WBC) Count 8.5 thou/uL (4.8-10.8)
[2019-05-11 04:32] LABS: Anion Gap 15 mmol/L (10-20); BUN (Urea Nitrogen) 16 mg/dL (9.8-20.1); Calc. Creatinine Clearance 39 mL/min (70-130); Calcium 9.5 mg/dL (7.8-10.44); Carbon Dioxide 21 mmol/L (23-31); Chloride 107 mmol/L (98-107); Estimated GFR-MDRD 82; Glucose 116 mg/dL (83-110); Sodium 138 mmol/L (136-145)
[2019-05-11 12:29] VITALS: BP 141/67; TEMP 97.4
[2019-05-11] MEDS ORDERED: Prevnar 13-Val Conj/PF 0.5 ML SYRINGE IM ONE (21:00)
[2019-05-11] MEDS ORDERED: FLU VACC TS2019-20(65YR UP)/PF 180 MCG/0.5 ML SYRINGE IM ONE (21:00)
--- NOTE | 2019-05-16 12:43 | EKG ---
Test Reason : PREOP Blood Pressure : / mmHG Vent. Rate : 070 BPM Atrial Rate : 070 BPM P-R Int : 158 ms QRS Dur : 086 ms QT Int : 410 ms P-R-T Axes : 080 036 086 degrees QTc Int : 442 ms Normal sinus rhythm Possible Left atrial enlargement Low voltage QRS Borderline ECG When compared with ECG of 04-MAY-2019 15:09, No significant change was found Confirmed by JENNIFER MANCINI ([id number]) on 05/16/2019 12:43:17 PM Referred By: BETHANY Confirmed By:JENNIFER MANCINI
== END 2019-05-11 15:32 | disposition home or self-care (01) ==
LOC: SDC 13:21 → INTOOBSV 19:30 → 2NO 19:30
PROVIDERS: ADMIT Orthopaedic Surgery Hand Surgery; ATTEND Orthopaedic Surgery Hand Surgery
DX: I16.0 Hypertensive urgency (principal); S63.219A Subluxation of metacarpophalangeal joint of unspecified finger, initial encounter; M66.242 Spontaneous rupture of extensor tendons, left hand; I10 Essential (primary) hypertension; J45.909 Unspecified asthma, uncomplicated; J44.9 Chronic obstructive pulmonary disease, unspecified; M40.209 Unspecified kyphosis, site unspecified; I25.10 Atherosclerotic heart disease of native coronary artery without angina pectoris; M19.90 Unspecified osteoarthritis, unspecified site; F17.210 Nicotine dependence, cigarettes, uncomplicated; Z53.09 Procedure and treatment not carried out because of other contraindication; Z79.51 Long term (current) use of inhaled steroids; Z79.899 Other long term (current) drug therapy; Z88.0 Allergy status to penicillin; Z88.5 Allergy status to narcotic agent; Z91.040 Latex allergy status; Z91.041 Radiographic dye allergy status
CPT/HCPCS: 71046; 80048; 84484; 85025; 93005; G0378 ×2; 36415; 93010; J0690; J2250; J3010; J3370

== ENCOUNTER 2019-05-25 09:48 | Observation (INO) | payer MEDICARE ==
[2019-05-24 10:27] VITALS: BMI 13.8
[2019-05-25] MEDS ORDERED: Bupivacaine PF 0.5% 30 ML VIAL ONE (10:24)
[2019-05-25] MEDS ORDERED: Betamet Acet/Betamet Na Ph 30 MG/5 ML VIAL ONE (10:24)
[2019-05-25] MEDS ORDERED: Sodium Chloride 0.9% 10 ML ONE (10:24)
[2019-05-25] MEDS ORDERED: Bacitracin Zinc Ointment 30 gm TUBE ONE (10:24)
[2019-05-25] MEDS ORDERED: hydrALAZINE 20 MG/ML VIAL ONE (10:36)
[2019-05-25 10:43] LABS: #Eosinphils 0.1 thou/uL (0.0-0.7); #Lymphocytes 1.6 thou/uL (1.20-3.40); #Monocytes 0.6 thou/uL (0.11-0.59); #Neutrophils 7.9 thou/uL (1.40-6.50); %Basophils 0.3 % (0.0-1.0); %Eosinophils 1.4 % (0.0-10.0); %Lymphocytes 15.5 % (21.0-51.0); %Monocytes 6.2 % (0.0-10.0); %Neutrophils 76.6 % (42.0-75.0); Hemoglobin 12.7 g/dL (12.0-16.0); Mean Corpuscular Hemoglobin 28.9 pg (27.0-31.0); Mean Corpuscular Volume 90.3 fL (78.0-98.0); Mean Platelet Volume 9.6 fL (7.4-10.4); Platelet Count 258 thou/uL (130-400); RBC Distribution Width 14.4 % (11.5-14.5); Red Blood Cell (RBC) Count 4.38 mill/uL (4.20-5.40); White Blood Cell (WBC) Count 10.3 thou/uL (4.8-10.8)
[2019-05-25] MEDS ORDERED: Fentanyl 100 MCG/2 ML VIAL ONE ×3 (10:54→17:39)
[2019-05-25 11:06] LABS: Anion Gap 12 mmol/L (10-20); BUN (Urea Nitrogen) 24 mg/dL (9.8-20.1); Calc. Creatinine Clearance 33 mL/min (70-130); Calcium 9.6 mg/dL (7.8-10.44); Carbon Dioxide 25 mmol/L (23-31); Chloride 101 mmol/L (98-107); Estimated GFR-MDRD 73; Glucose 104 mg/dL (83-110); Potassium 4.4 mmol/L (3.5-5.1); Sodium 134 mmol/L (136-145)
[2019-05-25] MEDS ORDERED: Bupivacaine 0.25% HCL 30 ML VIAL ONE (11:08)
[2019-05-25] MEDS ORDERED: Midazolam HCl 2 mg/2 ml Vial ONE ×2 (11:09→12:28)
[2019-05-25] MEDS ORDERED: Clindamycin/D5W 900 mg/50 ml Premix Bag ONE (11:12)
[2019-05-25] MEDS ORDERED: Fentanyl 250 MCG/5 ML VIAL ONE (11:47)
[2019-05-25 11:57] LABS: Bacteria/HPF None Seen HPF (None Seen); Bilirubin Negative (Negative); Blood, Urine Negative (Negative); Clarity Clear (Clear); Glucose, Urine (Dipstick) Normal (Negative); Leukocyte Negative Leu/uL (Negative); Nitrite Negative (Negative); Protein, Urine (Dipstick) Negative (Neg-Trace); RBC/HPF 0-3 HPF (0-3); Squamous Epithelial 0-3 HPF (0-3); Urobilinogen Normal mg/dL (Less than 2); WBC/HPF 0-3 HPF (0-3)
[2019-05-25] MEDS ORDERED: Ondansetron PF 4 MG/2 ML Vial IV PRN (12:49)
[2019-05-25] MEDS ORDERED: Milk Of Magnesia 30 ML UDCUP PO PRN (12:49)
[2019-05-25] MEDS ORDERED: Promethazine HCl 25 MG/ML VIAL IM PRN ×2 (12:49→17:36)
[2019-05-25] MEDS ORDERED: Meperidine HCl/PF 25 MG/ML VIAL IM PRN (12:54)
[2019-05-25] MEDS ORDERED: Communication Order-Pharmacy FS SCH (13:00)
[2019-05-25] MEDS ORDERED: PHENYLEPHRINE-NS 100 MCG/ML 10 ML SYRINGE ONE ×2 (13:04→15:34)
[2019-05-25] MEDS ORDERED: Phenylephrine HCL 10 MG/ML VIAL ONE (13:05)
[2019-05-25] MEDS ORDERED: PROPOFOL 200 MG/20 ML VIAL ONE (15:34)
[2019-05-25] MEDS ORDERED: Ropivacaine 0.2% HCl/PF (40 MG/20 ML VIAL) ONE (15:34)
[2019-05-25] MEDS ORDERED: Bupivacaine/Epinephrine 0.25% 30 ML VIAL ONE (15:34)
[2019-05-25] MEDS ORDERED: Lidocaine 1% PF 5 ML VIAL ONE (15:34)
[2019-05-25] MEDS ORDERED: Ondansetron HCl/PF 4 MG/2 ML Vial IVP PRN ×2 (17:36→17:47)
[2019-05-25] MEDS ORDERED: Promethazine HCl 25 MG/ML VIAL SLOW IVP PRN (17:36)
--- NOTE | 2019-05-25 17:44 | RAD ---
Exam:Intraoperative fluoroscopy HISTORY: Left finger tendon repair COMPARISON: None FINDINGS: Four intraoperative fluoroscopic images demonstrate K wires in the third and fourth digit. Exposure: 0.893 mGy. 45 seconds. IMPRESSION: Intraoperative fluoroscopy as above Transcribed Date/Time: 05/25/2019 5:44 PM
[2019-05-25] MEDS ORDERED: Morphine Sulfate 2 MG/ML SYRINGE SLOW IVP PRN (17:47)
[2019-05-25] MEDS ORDERED: Non-Formulary Medication 1 EACH PO PRN (17:47)
[2019-05-25] MEDS ORDERED: Promethazine HCl 25 MG/ML VIAL IM/IV PRN (17:47)
[2019-05-25] MEDS: Morphine 2 MG/ML SYRINGE SLOW IVP PRN (19:41)
[2019-05-25] MEDS: traMADol HCl 50 MG TAB PO PRN (20:17)
[2019-05-25] MEDS: Acetaminophen 325 MG TAB PO PRN (20:18)
[2019-05-25] MEDS: Vancomycin HCl 500 MG in Sodium Chloride 0.9% 100 ML IVPB SCH (21:08)
[2019-05-25] MEDS: Fentanyl 100 MCG/2 ML VIAL SLOW IVP PRN (21:09)
[2019-05-25] MEDS: Aspirin 81 mg Enteric Coated Tablet PO SCH (21:14)
[2019-05-25] MEDS ORDERED: PROVENTIL INHALER 6.7 G (200 INHALATIONS) INH PRN (21:20)
[2019-05-25] MEDS ORDERED: Montelukast Sodium 10 mg Tablet PO SCH (21:30)
[2019-05-25] MEDS ORDERED: Simvastatin 5 MG TAB PO SCH (21:30)
[2019-05-26] MEDS: Morphine 2 MG/ML SYRINGE SLOW IVP PRN ×3 (01:45→23:09)
[2019-05-26] MEDS ORDERED: Morphine 2 MG/ML SYRINGE ONE (05:00)
[2019-05-26] MEDS ORDERED: Acetaminophen 325 MG TAB ONE (05:12)
[2019-05-26] MEDS: Loratadine 10 MG TAB PO SCH ×2 (08:30→15:14)
[2019-05-26] MEDS: Lisinopril 5 MG TAB PO SCH ×2 (08:30→15:13)
[2019-05-26] MEDS ORDERED: TETANUS AND DIPHTHERIA TOX/PF 0.5 ML DISP.SYRIN IM SCH (09:00)
[2019-05-26] MEDS: Fentanyl 100 MCG/2 ML VIAL SLOW IVP PRN ×2 (11:20→15:41)
--- NOTE | 2019-05-26 11:42 | OP ---
DATE OF PROCEDURE: 05/25/2019 PREOPERATIVE DIAGNOSES: 1. Small finger extensor tendon subluxation with volar capsular contracture, but no erosive arthritis. 2. Ring finger extensor subluxation with volar capsular contracture, proximal interphalangeal joint palmar contracture, and ring that could not be removed while she was awake. 3. Middle finger extensor tendon subluxation, volar capsular contracture, severe erosive arthritis metacarpophalangeal joint and ring over the proximal interphalangeal joint that could not be removed with the patient awake. POSTOPERATIVE DIAGNOSES: 1. Small finger extensor tendon subluxation with volar capsular contracture, but no erosive arthritis. 2. Ring finger extensor subluxation with volar capsular contracture, proximal interphalangeal joint palmar contracture, and ring that could not be removed while she was awake. 3. Middle finger extensor tendon subluxation, volar capsular contracture, severe erosive arthritis metacarpophalangeal joint and ring over the proximal interphalangeal joint that could not be removed with the patient awake. FINDINGS: Of no erosive osteoarthritis, only tight palmar capsule and subluxation, central tendon, extensor mechanism at the MP joint small finger, but severe 60% ring finger and 80% middle finger erosive arthritis on both sides of the joint along with the defects described above. PROCEDURES PERFORMED: At the left small finger, 1. Extensor tendon centralization. 2. Arthrotomy metacarpophalangeal joint with synovectomy. 3. Radial intrinsic release. 4. Ulnar intrinsic release. 5. Volar and dorsal capsulectomy through dorsal approach. 6. C-arm supervision. At the left ring finger, 1. Extensor tendon centralization. 2. Arthrotomy with synovectomy metacarpophalangeal joint. 3. Radial intrinsic release. 4. Ulnar intrinsic release. 5. Volar capsulectomy. 6. Dorsal capsulectomy. 7. Removal of ring under general anesthesia. 8. Volar proximal interphalangeal joint capsule release via manipulation with proximal interphalangeal joint pinning. 9. Metacarpophalangeal joint arthroplasty with #3 [employer] silastic implant. At the left middle finger, the exact same procedures done at the ring finger were accomplished. INDICATIONS: Erosive arthritis with mild subluxation of the index finger, but no symptoms yet and minimal subluxation of small finger with marked symptoms. DESCRIPTION OF PROCEDURE: After successful general endotracheal anesthesia, the limb was prepped and draped. Tourniquet times would be; tourniquet #1, 16 minutes and tourniquet down 18 minutes; tourniquet #2, for 88 minutes and tourniquet down for 30 minutes and tourniquet #3 for 40 minutes, then no more tourniquet. The patient had nearly paper-thin skin, so we elected to do modified longitudinal incisions with the ring finger having a radial side MCP joint longitudinal incision made, carried through skin and subcutaneous tissue. We then dissected down to the extensor mechanism and saw it was 100% subluxed in the ulnar gutter. We then released the tight ulnar part to include the ulnar intrinsics for about 50% of the length, released the radial intrinsics and then saved the large radial flap about 5 mm from the extensor tendon itself centrally for later reconstruction to balance the extensor mechanism centrally. We then pulled the extensor mechanism ulnarly, did a dorsal capsulotomy, leaving a remnant of ulnar laid dorsal and distally, but over 50% of the capsule was gone. We then realized there was 80% erosive arthritis, so we began by releasing the ulnar intrinsic with the ulnar collateral, releasing the radial collateral, but tagging it for later reconstruction and then we made our first bony cut with a sagittal saw TPS handle. We made even cuts and squared with the volar aspect of the metacarpal head at the MP joint and then we released the volar capsule completely without steering from the midline. The patient then had the rongeur brought out to remove the edges of erosion from the base of the proximal phalanx, we used a starter broach then with the resections made to initiate the hole under C-arm supervision and we were in the center. We then progressively reamed by hand first, then #2, then a #3, then finally #4. We had over 5 mm of cut space and this was adequate and then for that reason, we placed a #4 prosthesis in appropriate orientation, first the trial and then we saw it gave full extension without subluxation and we had maintained the height of the middle finger. Then, we placed the final size [address] Before we had done that, we placed with K-wires and a Prolene in a modified Rosio weave, the Prolene through the radial distal end of the cut metacarpal head, placed the final prosthesis in place in appropriate orientation without subluxation, and then we began by first tightening the collateral in neutral position from medial to lateral. We then did a partial closure of the joint after we performed the arthrotomy and debridement with a 3-0 Vicryl undyed, and then we prepared for wound closure. Note, the tourniquet had been deflated during the final parts of the procedure. We then centralized the extensor mechanism using a [id number] mattress sutures until we had shortened the radial side retinaculum to centralize the tendon even with the joint flexed 60 degrees. The PIP joint had been straightened, we did manipulation to get the rings off, we could now achieve -10 extension without spring back and we pinned this in extension at this degree with a 0.035 K-wire and there was no gross motion and C-arm confirmed good position. Digit had excellent color with the tourniquet deflated. We then closed this incision, longitudinally, and there was a 5 mm area of skin at the base that was so paper-thin, it would not hold the suture and this was addressed later. We then reinflated the tourniquet, and we made a combined incision that would allow us to get to both the small finger and the ring finger, and maximize the space between the middle finger and the ring. This was carried through skin and subcutaneous tissue until we had the same findings as we did on the middle finger. The exact same mirror image procedure was accomplished to include removal of the rings as well as the manipulation and extension to free up the volar plate and pinning. We had excellent alignment here, except between the ring finger and the middle finger metacarpophalangeal joint arthroplasty, for that a #3 was used at the ring finger. This was filled with [email or web address] silastic. Finally, we carried through small finger, approached it using an extensile approach using the ring finger incision, maintained the web space integrity, and then we were able to open the extensor mechanism, we performed a dorsal capsulotomy and then performed a volar capsulotomy with volar plate elevation through the dorsal incision and was able to achieve prerequisite 5 degrees hyperextension of the MP joint as well as the PIP. We did not have to pin the PIP joint. Tourniquet was deflated. Hemostasis was obtained. The wound was then closed with a combination of 3-0 nylon proximally where the skin was thick and where it was 4-0 nylon and Steri-Strips. This gave excellent apposition. We did not have to perform a skin graft at this time. We will place her in bulky wound splint and monitor her closely. Job ID: [id number]
[2019-05-26] MEDS: traMADol HCl 50 MG TAB PO PRN ×2 (11:58→20:53)
[2019-05-26] MEDS: Mometasone/Formoterol 120 PUFF INHALER INH SCH ×2 (14:23→18:42)
[2019-05-26] MEDS: Aspirin 81 mg Enteric Coated Tablet PO SCH ×2 (15:14→20:55)
[2019-05-26] MEDS: Vancomycin HCl 500 MG in Sodium Chloride 0.9% 100 ML IVPB SCH (16:41)
[2019-05-26] MEDS: Acetaminophen 325 MG TAB PO PRN ×2 (16:44→20:55)
[2019-05-26 19:41] LABS: #Lymphocytes 1.4 thou/uL (1.20-3.40); #Monocytes 1.1 thou/uL (0.11-0.59); #Neutrophils 9.3 thou/uL (1.40-6.50); %Basophils 0.4 % (0.0-1.0); %Eosinophils 1.2 % (0.0-10.0); %Neutrophils 77.7 % (42.0-75.0); Hemoglobin 11.1 g/dL (12.0-16.0); Mean Corpuscular HGB CONC 32.7 g/dL (32.0-36.0); Mean Corpuscular Hemoglobin 30.3 pg (27.0-31.0); Mean Corpuscular Volume 92.6 fL (78.0-98.0); Mean Platelet Volume 10.1 fL (7.4-10.4); Platelet Count 224 thou/uL (130-400); RBC Distribution Width 14.8 % (11.5-14.5); Red Blood Cell (RBC) Count 3.66 mill/uL (4.20-5.40); White Blood Cell (WBC) Count 11.9 thou/uL (4.8-10.8)
[2019-05-26 19:42] LABS: #Eosinphils 0.1 thou/uL (0.0-0.7)
[2019-05-26] MEDS: Metoprolol Tartrate 25 MG TAB PO SCH (20:55)
[2019-05-26] MEDS ORDERED: FLU VACC TS2019-20(65YR UP)/PF 180 MCG/0.5 ML SYRINGE IM ONE (21:00)
[2019-05-26] MEDS ORDERED: Simvastatin 5 MG TAB PO SCH (21:00)
[2019-05-26] MEDS ORDERED: Montelukast Sodium 10 mg Tablet PO SCH (21:00)
--- NOTE | 2019-05-27 02:00 | CON ---
DATE OF CONSULTATION: Consulted by Dr. Joya for medical management. CHIEF COMPLAINT: Hypertension after she had extensor tendon subluxation, centralization, radial intrinsic release, ulnar intrinsic release, volar and dorsal capsulectomy through dorsal approach, arthrotomy, metacarpophalangeal joint with synovectomy. The patient became hypertensive in the recovery room, and hospital service was consulted for medical management. PRIMARY CARE PHYSICIAN: Dr. Marcellus Padilla. PAST MEDICAL HISTORY: COPD, asthma, hypertension, leukocytosis, kyphosis, and deformity of the spine. ALLERGIES: PENICILLIN, CODEINE. PAST SURGICAL HISTORY: Appendectomy, hysterectomy, elbow surgery with complete replacement, femoral repair in 2017, cataract surgery in 2016, and fixation of the right distal femur fracture. HOME MEDICATIONS: 1. Zyrtec 10 mg p.o. daily. 2. Combivent 1 puff q.i.d. 3. Lisinopril 5 mg p.o. daily. 4. Singulair 10 mg p.o. at bedtime. 5. Simvastatin 10 mg p.o. at bedtime. 6. Symbicort two puffs b.i.d. 7. Ventolin HFA inhaler 2 puffs q.4 hours as needed. 8. Tramadol 50 mg p.o. q.4 hours as needed. REVIEW OF SYSTEMS: The patient denies fever, chills. Denies any chest pain. Denies any shortness of breath. Denies cough. Denies any abdominal pain, nausea, vomiting, diarrhea. Denies any dysuria. Does report postop pain to left hand post surgery. Reports that the pain medication she is on helps somewhat but believes her blood pressure is elevated, because she still hurts in her hand, and she is not allowed to go out and smoke. Denies any skin changes. Neurologic, denies any headache, dizziness. PAST MEDICAL HISTORY: Coronary artery disease, asthma. The patient does see a oil well pumper every 6 months in [place], [place]. Reports that her next scheduled visit is in June. SOCIAL HISTORY: Denies any alcohol use. Smokes one pack of cigarettes per day. Lives at home with her . PHYSICAL EXAMINATION: VITAL SIGNS: Temp is 98.9, pulse is 71, respirations are 20, PO2 sats are 94% on room air, and blood pressure is 159/65. CONSTITUTIONAL: The patient appears nontoxic. She is alert and oriented to person, place, and time. HEENT: Head is atraumatic and normocephalic. NECK: Normal range of motion. Trachea is midline. RESPIRATORY: Chest, breath sounds are clear. Chest expansion is equal. ABDOMEN: Nontender. Bowel sounds are heard. BACK: Normal range of motion. No tenderness. EXTREMITIES: Lower extremities, full range of motion. No tenderness. Pedal pulses are normal. No edema is noted. Upper extremities, the patient has an Jorge wrap around left hand and arm. Dressing is dry and intact. NEUROLOGIC: The patient oriented to person, place, and time. Speech is normal. SKIN: Warm, dry, normal in color. PLAN/ASSESSMENT: 1. Hypertension, added some metoprolol 25 mg p.o. b.i.d. Continue lisinopril 5 mg p.o. daily. Consider increasing that to 10 mg p.o. daily pain control postop. 2. History of chronic obstructive pulmonary disease, asthma. Neb treatments have been ordered. Continue home medication. 3. Postop for left hand surgery. Dr. Joya is managing. 4. History of hyperlipidemia. We will continue home medications. 5. Thank you for consulting the hospitalist team. We will follow this patient with you. 6. Gastrointestinal and deep venous thrombosis prophylaxis started. Job ID: [id number]
[2019-05-27] MEDS ORDERED: cloNIDine 0.1 MG TAB PO PRN (04:21)
[2019-05-27] MEDS ORDERED: hydrALAZINE 20 MG/ML VIAL SLOW IVP PRN (04:21)
[2019-05-27] MEDS: Mometasone/Formoterol 120 PUFF INHALER INH SCH ×2 (08:20→08:31)
[2019-05-27] MEDS ORDERED: Lisinopril 5 MG TAB PO SCH (09:00)
[2019-05-27] MEDS ORDERED: Famotidine 20 MG TAB PO SCH (09:00)
[2019-05-27] MEDS: Lisinopril 5 MG TAB PO SCH (10:04)
[2019-05-27] MEDS: Aspirin 81 mg Enteric Coated Tablet PO SCH (10:05)
[2019-05-27] MEDS: Loratadine 10 MG TAB PO SCH (10:06)
[2019-05-27] MEDS: Metoprolol Tartrate 25 MG TAB PO SCH (10:08)
[2019-05-27] MEDS: traMADol HCl 50 MG TAB PO PRN (11:55)
[2019-05-27 12:50] VITALS: BP 136/76; TEMP 98.4
--- NOTE | 2019-05-27 21:23 | EKG ---
Test Reason : PREOP Blood Pressure : / mmHG Vent. Rate : 075 BPM Atrial Rate : 075 BPM P-R Int : 150 ms QRS Dur : 088 ms QT Int : 424 ms P-R-T Axes : 081 031 093 degrees QTc Int : 473 ms Normal sinus rhythm Low voltage QRS Abnormal QRS-T angle, consider primary T wave abnormality Prolonged QT Abnormal ECG When compared with ECG of 10-MAY-2019 15:21, No significant change was found Confirmed by Lukas DUNAWAY ([id number]) on 05/27/2019 9:23:43 PM Referred By: BETHANY Confirmed By:Lukas DUNAWAY
--- NOTE | 2019-05-28 07:41 | DIS ---
DATE OF ADMISSION: 05/25/2019 DATE OF DISCHARGE: 05/27/2019 DISCHARGE DISPOSITION: To home. PRIMARY DISCHARGE DIAGNOSIS: The patient is status post dorsal capsulectomy with tendon release and other procedures done by Dr. Joya. SECONDARY DISCHARGE DIAGNOSES: Hypertension, history of chronic obstructive pulmonary disease, ongoing tobacco abuse, kyphosis. PROCEDURES DONE DURING HOSPITALIZATION: Please see operative note by Dr. Joya regarding surgery done on the left hand. This was done on 05/25/2019. H and H 11 and 33, platelet count 224, BUN 24, creatinine 0.7. DISCHARGE MEDICATIONS: 1. Combivent inhaler 4 times daily p.r.n. 2. Lisinopril 5 mg daily. 3. Singulair 10 mg p.o. at bedtime. 4. Zocor 10 mg p.o. at bedtime. 5. Symbicort inhaler 160/4.5 mcg 2 puffs twice daily. 6. Aspirin 81 mg twice daily for 15 days. 7. Lopressor 25 mg twice daily. 8. Ultram p.r.n. ALLERGIES: ALLERGIC TO CODEINE, IODINE, LATEX, PENICILLIN. DISCHARGE PLAN: The patient to follow up with her primary care physician Dr. Marcellus Padilla, in 1 week. She also needs to follow up with Dr. Joya as advised. BRIEF COURSE DURING HOSPITALIZATION: The patient initially was electively taken to OR for left wrist procedure by Dr. Joya. Postprocedure, the patient was found to be hypertensive and was placed under observation. She has had metoprolol added to her current regimen and this was well controlled. She remained hemodynamically stable all through her stay. Her pain is well controlled on current medications. She needs follow up with Dr. Joya as advised and Dr. Germain, her primary care physician in 1 week. Please note, I have seen and examined the patient on the day of discharge. Job ID: [id number] MTDD
== END 2019-05-27 14:04 | disposition home or self-care (01) ==
LOC: SDC 09:48 → INTOOBSV 19:27 → 2NO 19:27
PROVIDERS: ADMIT Internal Medicine; ATTEND Internal Medicine
PROC: 0RRV0JZ Replacement of Left Metacarpophalangeal Joint with Synthetic Substitute, Open Approach (ICD-10-PCS; principal; 2019-05-25)
PROC: 0RNX0ZZ Release Left Finger Phalangeal Joint, Open Approach (ICD-10-PCS; 2019-05-25)
PROC: 0RNX0ZZ Release Left Finger Phalangeal Joint, Open Approach (ICD-10-PCS; 2019-05-25)
PROC: 0LQ80ZZ Repair Left Hand Tendon, Open Approach (ICD-10-PCS; 2019-05-25)
PROC: 3E0T3BZ Introduction of Anesthetic Agent into Peripheral Nerves and Plexi, Percutaneous Approach (ICD-10-PCS; 2019-05-25)
DX: S63.235A Subluxation of proximal interphalangeal joint of left ring finger, initial encounter (principal); S63.213A Subluxation of metacarpophalangeal joint of left middle finger, initial encounter; S63.206A Unspecified subluxation of right little finger, initial encounter; M15.4 Erosive (osteo)arthritis; M24.541 Contracture, right hand; I10 Essential (primary) hypertension; J44.9 Chronic obstructive pulmonary disease, unspecified; M06.9 Rheumatoid arthritis, unspecified; E78.5 Hyperlipidemia, unspecified; I25.10 Atherosclerotic heart disease of native coronary artery without angina pectoris; G89.18 Other acute postprocedural pain; Z88.0 Allergy status to penicillin; Z88.5 Allergy status to narcotic agent; Z91.040 Latex allergy status; Z91.041 Radiographic dye allergy status; Z79.899 Other long term (current) drug therapy; F17.210 Nicotine dependence, cigarettes, uncomplicated
CPT/HCPCS: 26418 ×2; 26525 ×2; 26531; 64415; 73120; 76000; 80048; 81001; 85025 ×2; 93005; 94640 ×3; C1776; G0378 ×2; 93010; J0360; J0702; J2001; J2175; J2250; J2270; J2370; J2405; J2704; J2795; J3010; J3370; J3490; J7620; S0020